=== PATIENT | male | born 1955 | race Caucasian/White ===

== ENCOUNTER 2018-08-10 09:55 | Emergency (ER) | payer MEDICARE ==
[2018-08-10 10:19] VITALS: BP 138/65
--- NOTE | 2018-08-10 11:02 | UC ---
UC General HPI - HPI Summary HPI Summary: PT IS C/O A DENTAL INFECTION. HE NOTES HIS LOWER TEETH ARE BAD. ABOUT 2 WEEKS AGO, HE STARTED TO HAVE SWELLING AROUND THE R LOWER TOOTH AND THEN THE OTHER. HE NOTED SOME MILD SWELLING UNDER HIS JAW YESTERDAY. THIS AM IT WAS MUCH WORSE AND HARD. PT NOTES "IT FEELS LIKE IT IS DRAINING FROM THE L TOOTH. NO CHANGE IN SWELLING WITH FOOD OR DRINK. NO FEVER OR TROUBLE WITH SWALLOW OR SPEECH. - History of Current Complaint Chief Complaint: UCDentalProblem Stated Complaint: DENTAL CONCERN Time Seen by Provider: 08/10/18 10:55 Hx Obtained From: Patient Onset/Duration: Gradual Onset Timing: Constant Pain Intensity: 4 Associated Signs & Symptoms: Positive: Edema. Negative: Fever, Headache - Allergy/Home Medications Allergies/Adverse Reactions: Allergies Allergy/AdvReac Type Severity Reaction Status Date / Time No Known Allergies Allergy Verified 08/10/18 10:18 Home Medications: Home Medications NK [No Home Medications Reported] 08/10/18 [History Confirmed 08/10/18] PMH/Surg Hx/FS Hx/Imm Hx Previously Healthy: Yes - Surgical History Surgical History: None - Family History Known Family History: Positive: Non-Contributory - Social History Alcohol Use: None Substance Use Type: None Smoking Status (MU): Heavy Every Day Tobacco Smoker Review of Systems All Other Systems Reviewed And Are Negative: Yes Constitutional: Positive: Negative Skin: Positive: Negative Eyes: Positive: Negative ENT: Positive: Dental Pain Respiratory: Positive: Negative Cardiovascular: Positive: Negative Gastrointestinal: Positive: Negative Genitourinary: Positive: Negative Motor: Positive: Negative Neurovascular: Positive: Negative Musculoskeletal: Positive: Negative Neurological: Positive: Negative Psychological: Positive: Negative Physical Exam Triage Information Reviewed: Yes Appearance: Well-Appearing Vital Signs: Initial Vital Signs Temp 98.5 F 08/10/18 10:16 Pulse 110 08/10/18 10:16 Resp 18 08/10/18 10:16 BP 138/65 08/10/18 10:16 Pulse Ox 97 08/10/18 10:16 Vital Signs Reviewed: Yes Eyes: Positive: Conjunctiva Clear ENT: Positive: Pharynx normal, TMs normal. Negative: Nasal congestion, Nasal drainage Dental: Positive: Gross Decay/Caries @ - BOTH LOWER CANINES(ONLY TEETH PRESENT) . LOWER GUM ERYTHEMA AND MILD SWELLING BUT NON FLUCTUANT. SUBMANDIBULAR SPACE WITH MODERATE SWELLING AND VERY FIRM. Neck: Positive: Supple, Nontender, No Lymphadenopathy, Other: - NO SWELLING. Respiratory: Positive: Lungs clear, Normal breath sounds, No respiratory distress Cardiovascular: Positive: RRR, No Murmur. Negative: Tachycardia Abdomen Description: Positive: Nontender, Soft Bowel Sounds: Positive: Present Musculoskeletal: Positive: ROM Intact Neurological: Positive: Alert Psychological: Positive: Age Appropriate Behavior Skin Exam: Normal Skin: Negative: Rashes Course/Dx - Course Course Of Treatment: EMS TRANSFER OFFERED BUT PT DECLINED. HE WILL DRIVE HIMSELF DIRECTLY TO THE [facility]. REPORT GIVEN TO DR BOND AT THE ER. ADVISED OF LUDWIGS ANGINA. - Differential Dx - Multi-Symptom Differential Diagnoses: Other - LOCAL DENTAL ABSCESS, SIALOADENITIS, LUDWIGS ANGINA. SINCE IT BEGAN WITH LOCAL SWELLING FROM R LOWER TOOTH AND THEN SPREAD PLUS NO CHANGES WITH FOOD/DRINK, I THINK SIALOADENITIS IS NOT LOIKELY AND THAT THIS IS A LUDWIGS ANGINA. - Diagnoses Provider Diagnosis: Ludwigs angina Discharge - Sign-Out/Discharge Documenting (check all that apply): Patient Departure All imaging exams completed and their final reports reviewed: No Studies - Discharge Plan Condition: Stable Disposition: TRANS HIGHER LVL OF CARE FAC Referrals: No Primary Care Phys,NOPCP [Primary Care Provider] - Additional Instructions: LEAVE HERE AND GO DIRECTLY TO THE [facility] DISCUSSED. DIAGNOSIS: LUDWIGS ANGINA. REPORT GIVEN TO DR GARCIA AT [facility]. - Billing Disposition and Condition Condition: STABLE Disposition: Trans Higher Lvl of Care Fac
== END 2018-08-10 11:12 | disposition short-term general hospital (02) ==
LOC: UCCORT 09:55
DX: K12.2 Cellulitis and abscess of mouth (principal); F17.290 Nicotine dependence, other tobacco product, uncomplicated
CPT/HCPCS: 99201; G0463